=== PATIENT | male | born 1965 | race Two or more races ===

== ENCOUNTER 2017-02-24 10:59 | Emergency (ER) | payer OTHER ==
[2017-02-24 11:05] VITALS: BP 159/72; PULSE 79; TEMP 98; BMI 21.1
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
== END 2017-02-24 12:25 | disposition home or self-care (01) ==
LOC: JERFT 10:59
PROC: 08QNXZZ Repair Right Upper Eyelid, External Approach (ICD-10-PCS; principal; 2017-02-24)
DX: S01.111A Laceration without foreign body of right eyelid and periocular area, initial encounter (principal); Y00.XXXA Assault by blunt object, initial encounter; Y93.9 Activity, unspecified; Y92.9 Unspecified place or not applicable
CPT/HCPCS: 99281-25